=== PATIENT | male | born 1965 | race African-American/Black ===

== ENCOUNTER 2017-02-07 00:35 | Emergency (ER) | payer OTHER ==
[~2017-02-07] VITALS: Ht 182.9 cm; Wt 109.0 kg
[~2017-02-07 00:35] MED LIST: BACL10TA PO; BUSP10TA23 PO; GABA-531 PO; MECL-111 PO; PARO10TA89 PO; RISP3 PO
[2017-02-07] MEDS ORDERED: FLUORESCEIN SODIUM 1 MG STRIP OS ONE (02:00)
[2017-02-07] MEDS ORDERED: PROPARACAINE HCL 0.5% 15 ML OPHTHALMIC SOLUTION OS ONE (02:00)
[2017-02-07] MEDS ORDERED: PERTUSS(ACELL),DIPH,TET VAC/PF 0.5 ML VIAL IM ONE (02:00)
[2017-02-07] MEDS ORDERED: TETANUS/DIPHTHERIA TOXOID [ADULT] 0.5 ML SYRINGE IM ONE (02:00)
[2017-02-07] MEDS ORDERED: MOXIFLOXACIN HCL 0.5% 3 ML OPHTHALMIC SOLUTION OS ONE (03:00)
[2017-02-07] MEDS ORDERED: OxyCODONE HCL/ACETAMINOPHEN 5-325 MG TABLET PO ONE (04:00)
[2017-02-07 04:19] VITALS: BP 133/88
== END 2017-02-07 04:23 | disposition home or self-care (01) ==
LOC: EMS 00:36
DX: H16.002 Unspecified corneal ulcer, left eye (principal)
CPT/HCPCS: 90471; 90714; 90715; 99284

== ENCOUNTER 2017-03-04 14:11 | Emergency (ER) | payer OTHER ==
[~2017-03-04] VITALS: Ht 185.4 cm; Wt 109.1 kg
[2017-03-04 14:46] VITALS: BP 122/71
[2017-03-04] MEDS ORDERED: KETOROLAC TROMETHAMINE 30 MG/ML VIAL IM ONE (16:30)
== END 2017-03-04 17:39 | disposition home or self-care (01) ==
LOC: EMS 14:12
DX: S46.912A Strain of unspecified muscle, fascia and tendon at shoulder and upper arm level, left arm, initial encounter (principal); X58.XXXA Exposure to other specified factors, initial encounter; Y93.89 Activity, other specified; Y92.89 Other specified places as the place of occurrence of the external cause; Y99.8 Other external cause status
CPT/HCPCS: 73030; 96372; 99284; J1885

== ENCOUNTER 2017-08-24 17:45 | Emergency (ER) | payer OTHER ==
[~2017-08-24] VITALS: Ht 185.4 cm; Wt 95.5 kg
[~2017-08-24 17:45] MED LIST changes: -BACL10TA PO
[2017-08-24] MEDS ORDERED: PARO20TA24 PO (17:55)
[2017-08-24] MEDS ORDERED: BUSP15 PO (17:55)
[2017-08-24] MEDS ORDERED: SULFAMETHOX/TRIMETH DS 800-160 MG/TABLET PO ONE (21:00)
[2017-08-24] MEDS ORDERED: IBUPROFEN 800 MG TABLET PO ONE (21:00)
[2017-08-24] MEDS ORDERED: POVIDONE-IODINE 10% 15 ML SOLUTION UD TP ONE (21:00)
[2017-08-24] MEDS ORDERED: CEPHALEXIN MONOHYDRATE 500 MG CAPSULE PO ONE (21:00)
[2017-08-24] MEDS ORDERED: LIDOCAINE HCL 1% 10 ML VIAL INJ ONE (21:00)
[2017-08-24] MEDS ORDERED: ONDANSETRON HCL 4 MG TABLET PO ONE (22:15)
[2017-08-24 22:16] VITALS: BP 139/76
== END 2017-08-24 22:18 | disposition home or self-care (01) ==
LOC: EMS 17:50
DX: L02.415 Cutaneous abscess of right lower limb (principal)
CPT/HCPCS: 10060; 99284; J3490; Q0162

== ENCOUNTER 2018-01-28 12:20 | Emergency (ER) | payer OTHER ==
[~2018-01-28] VITALS: Ht 182.9 cm; Wt 97.7 kg
[~2018-01-28 12:20] MED LIST changes: -BUSP10TA23 PO; +BUSP15 PO; -PARO10TA89 PO; +PARO20TA24 PO
[2018-01-28] MEDS ORDERED: KETOROLAC TROMETHAMINE 30 MG/ML VIAL IM ONE (12:45)
[2018-01-28 14:53] VITALS: BP 141/84
== END 2018-01-28 15:20 | disposition home or self-care (01) ==
LOC: EMS 12:21
DX: S91.342A Puncture wound with foreign body, left foot, initial encounter (principal); F32.9 Major depressive disorder, single episode, unspecified; F41.9 Anxiety disorder, unspecified; W45.8XXA Other foreign body or object entering through skin, initial encounter; Y93.89 Activity, other specified; Y92.89 Other specified places as the place of occurrence of the external cause; Y99.8 Other external cause status
CPT/HCPCS: 73630; 96372; 99284; J1885